=== PATIENT | male | born 1950 | race Two or more races ===

== ENCOUNTER 2017-02-24 06:53 | Inpatient (IN) | payer OTHER ==
[~2017-02-24] VITALS: Ht 180.3 cm; Wt 90.1 kg
[~2017-02-24 06:53] MED LIST: ASPI81TA27 PO; ATOR40TA52 PO; CARV3.1240 PO; CYCL1TAB18 PO; FLUO-125 PO; LORA-654 PO; LOSA50TA6 PO; NITR0.4S29 SL; PRAS10TA8 PO; TRAZ50TA2 PO
[2017-02-24] MEDS ORDERED: IODIXANOL 320MG/ML 100ML BTL IV ONE (07:23)
[2017-02-24] MEDS ORDERED: LIDOCAINE 2%HCL (LOCAL ANESTH.) INJ 20ML MDV ONE (07:23)
[2017-02-24] MEDS ORDERED: VERAPAMIL 2.5MG/ML INJ 2ML VIAL IV ONE (07:39)
[2017-02-24] MEDS ORDERED: ANGIOMAX 250 MG VIAL IV ONE (07:39)
[2017-02-24] MEDS ORDERED: fentaNYL CITRATE 100 MCG/2 ML VL ONE (07:40)
[2017-02-24] MEDS ORDERED: SODIUM CHL 0.9% 50 ML ONE (07:40)
[2017-02-24] MEDS ORDERED: NITROGLYCERIN 5MG/ML 10ML VIAL IV ONE (07:40)
[2017-02-24] MEDS ORDERED: MIDAZOLAM HCL 1MG/1ML-2 ML VIAL ONE (07:40)
[2017-02-24] MEDS ORDERED: PRASUGREL HCL 10 MG TAB ONE (08:16)
[2017-02-24] MEDS ORDERED: MORPHINE SULF INJ 2 MG/ML SYRINGE 1ML IV PRN (08:45)
[2017-02-24] MEDS ORDERED: NITROGLYCERIN 0.4 MG SL TAB SL PRN (08:45)
[2017-02-24] MEDS ORDERED: NITROGLYCERIN 0.4 MG SL TAB SL SCH (08:45)
[2017-02-24] MEDS ORDERED: CYCLOBENZAPRINE HCL 10 MG TAB PO PRN (08:45)
[2017-02-24] MEDS ORDERED: HYDROcodone-ACET 5/325MG TAB PO PRN (08:45)
[2017-02-24] MEDS ORDERED: traZODone HCL 50 MG TAB PO PRN (08:45)
[2017-02-24] MEDS ORDERED: ACETAMINOPHEN 500 MG TAB PO PRN (08:45)
[2017-02-24] MEDS ORDERED: ONDANSETRON HCL 4 MG/2 ML VIAL IV PRN (08:45)
[2017-02-24] MEDS ORDERED: LORazepam 0.5 MG TAB PO PRN ×2 (08:45)
[2017-02-24] MEDS: PRASUGREL HCL 10 MG TAB PO SCH (10:35)
[2017-02-24] MEDS: FLUoxetine HCL 20 MG CAP PO SCH (10:35)
[2017-02-24] MEDS: ASPirin-EC 81 mg tab PO SCH (10:35)
[2017-02-24] MEDS: CARVEDILOL 3.125 MG TAB PO SCH ×2 (10:35→22:18)
[2017-02-24] MEDS: LOSARTAN POTASSIUM 50 MG TAB PO SCH (10:35)
[2017-02-24 11:12] VITALS: BP 115/78
[2017-02-24] MEDS ORDERED: INFLUENZA QUAD 2017-2018 0.5 ML SYRG IM ONE (15:00)
[2017-02-24] MEDS ORDERED: PNEUMOCOCCAL VACC POLYS 25 MCG/0.5 ML VIAL IM ONE (15:00)
[2017-02-24 16:55] VITALS: BP 113/79
[2017-02-24 22:00] VITALS: BP 127/73
[2017-02-25 05:05] VITALS: BP 119/66
[2017-02-25 08:30] VITALS: BP 117/69
[2017-02-25] MEDS: CARVEDILOL 3.125 MG TAB PO SCH (09:12)
[2017-02-25] MEDS: LOSARTAN POTASSIUM 50 MG TAB PO SCH (09:12)
[2017-02-25] MEDS: PRASUGREL HCL 10 MG TAB PO SCH (09:13)
[2017-02-25] MEDS: FLUoxetine HCL 20 MG CAP PO SCH (09:13)
[2017-02-25] MEDS: ASPirin-EC 81 mg tab PO SCH (09:13)
== END 2017-02-25 12:45 | disposition home or self-care (01) | DRG 247 ==
LOC: CATH 06:53 → EAST 06:54 → TELE-E-ADS 11:16 → TELE-WESTW 14:25
PROVIDERS: ADMIT Internal Medicine; ATTEND Internal Medicine
PROC: 027034Z Dilation of Coronary Artery, One Artery with Drug-eluting Intraluminal Device, Percutaneous Approach (ICD-10-PCS; principal; 2017-02-24)
PROC: B2111ZZ Fluoroscopy of Multiple Coronary Arteries using Low Osmolar Contrast (ICD-10-PCS; 2017-02-24)
DX: I25.10 Atherosclerotic heart disease of native coronary artery without angina pectoris (principal); I50.9 Heart failure, unspecified; I25.2 Old myocardial infarction; Z79.02 Long term (current) use of antithrombotics/antiplatelets; Z23 Encounter for immunization
CPT/HCPCS: 92928; 93458; 99152; 99153; C1874; C1887; J2250; J3490; Q9967